=== PATIENT | female | born 1985 | race Caucasian/White ===

== ENCOUNTER 2023-05-30 16:32 | Inpatient (IN) | payer BC ==
[2023-05-30] MEDS ORDERED: Ondansetron PF 4 MG/2 ML Vial IVP PRN (18:19)
[2023-05-30] MEDS ORDERED: fentaNYL 50 mcg/mL 1 mL Vial SLOW IVP PRN (18:19)
[2023-05-30] MEDS ORDERED: Promethazine HCl 25 MG/ML VIAL IM PRN (18:19)
[2023-05-30] MEDS ORDERED: Acetaminophen 500 MG TAB PO PRN (18:19)
[2023-05-30] MEDS ORDERED: Zolpidem Tartrate 5 MG TAB PO PRN (18:19)
[2023-05-30] MEDS ORDERED: hydrALAZINE 20 MG/ML VIAL SLOW IVP PRN (18:19)
[2023-05-30] MEDS ORDERED: NS w/ Oxytocin 30 units 500 ML IV SCH (18:30)
[2023-05-30] MEDS ORDERED: Lactated Ringer's 1,000 ML IV SCH ×2 (18:30)
[2023-05-30 18:42] VITALS: BMI 25.9
[2023-05-30] MEDS ORDERED: Penicillin G Potassium 5 MILL.UNITS in Sodium Chloride 0.9% 100 ML IVPB SCH (19:00)
[2023-05-30] MEDS ORDERED: NIFEdipine 10 MG CAP PO SCH ×2 (19:00→23:59)
[2023-05-30 19:27] LABS: Hemoglobin 11.6 g/dL (12.0-15.5); Mean Corpuscular HGB CONC 34.1 g/dL (32.0-36.0); Mean Corpuscular Hemoglobin 32.8 pg (27.0-33.0); Mean Platelet Volume 9.4 fl (7.4-10.4); Platelet Count 132 10x3/uL (150-450); RBC Distribution Width 12.3 % (11.5-14.5); Red Blood Cell (RBC) Count 3.54 10x6/uL (3.90-5.03); White Blood Cell (WBC) Count 4.2 10x3/uL (3.5-10.5)
[2023-05-30 19:36] LABS: Bilirubin Neg (Negative); Blood, Urine Negative (Negative); Clarity Clear (Clear); Glucose, Urine (Dipstick) Normal (Negative); Ketone, Urine 15 mg/dL (Negative); Leukocyte 25 (Negative); Nitrite Negative (Negative); Protein, Urine (Dipstick) Negative (Neg-Trace); Urobilinogen Normal mg/dL (Less than 2); pH, Urine 6.5 (5.0-9.0)
[2023-05-30 19:46] LABS: RBC/HPF None Seen HPF (0-3); Squamous Epithelial 0-3 HPF (0-3); WBC/HPF 0-3 HPF (0-3)
[2023-05-30 19:47] LABS: Bacteria/HPF 3+ HPF (None Seen); Mucous/LPF 1+ LPF (<2+)
[2023-05-30 20:01] LABS: HBSAg Index 0.21 S/CO (0-0.99); Hep B Surf Ag - L&D Non-Reactive S/CO (NonReactive); Syphilis Antibody Nonreactive (Nonreactive); Syphilis Antibody Index 0.06 S/CO (<1.00 Non-Reactive)
[2023-05-30] MEDS: Betamet Acet/Betamet Na Ph 30 MG/5 ML VIAL IM SCH (20:03)
[2023-05-30] MEDS ORDERED: Nitrofurantoin Monohyd/M-Cryst 100 MG CAP PO SCH (23:30)
[2023-05-31] MEDS: Pen G 2.5 MILL.UNITS/50 ML BAG IVPB SCH ×4 (00:02→12:26)
[2023-05-31] MEDS ORDERED: Naloxone HCl 0.4 mg/ml Vial IVP PRN ×2 (03:28)
[2023-05-31] MEDS ORDERED: Lactated Ringer's 500 ML IV PRN (03:28)
[2023-05-31] MEDS ORDERED: Promethazine HCl 25 MG/ML VIAL IM PRN ×2 (03:28→22:05)
[2023-05-31] MEDS ORDERED: Moisturizing Cream (Eucerin) 113 GM JAR TOP PRN (03:28)
[2023-05-31] MEDS ORDERED: ePHEDrine Sulfate 50 MG/10 ML VIAL SLOW IVP PRN (03:28)
[2023-05-31] MEDS ORDERED: diphenhydrAMINE 50 MG/ML VIAL IVP PRN (03:28)
[2023-05-31] MEDS ORDERED: Acetaminophen 325 MG TAB PO PRN (03:28)
[2023-05-31] MEDS ORDERED: Ondansetron PF 4 MG/2 ML Vial IVP PRN ×2 (03:28→22:05)
[2023-05-31] MEDS ORDERED: fentaNYL 2 mcg/Ropivacaine 0.2% Epidural 100 ML CADD EPIDURAL SCH (03:30)
[2023-05-31] MEDS ORDERED: Communication Order-Pharmacy FS SCH (03:30)
[2023-05-31] MEDS ORDERED: fentaNYL/Ropivacaine Epidural 100 ML ONE ×2 (03:33→15:36)
[2023-05-31] MEDS: Betamet Acet/Betamet Na Ph 30 MG/5 ML VIAL IM SCH (08:25)
[2023-05-31] MEDS ORDERED: Nitrofurantoin Monohyd/M-Cryst 100 MG CAP PO SCH (09:00)
[2023-05-31] MEDS ORDERED: NS w/ Oxytocin 30 units 500 ML ONE (14:16)
[2023-05-31] MEDS ORDERED: HYDROcodone/Acetaminophen 5/325 mg Tablet PO PRN (22:05)
[2023-05-31] MEDS ORDERED: Boostrix 0.5 ML (Tdap) VIAL (>/=7 yrs of age) IM ONE (22:05)
[2023-05-31] MEDS ORDERED: diphenhydrAMINE 25 MG CAP PO PRN (22:05)
[2023-05-31] MEDS ORDERED: hydrALAZINE 20 MG/ML VIAL SLOW IVP PRN (22:05)
[2023-05-31] MEDS ORDERED: Benzocaine-Menthol 82.5 ML CAN TOP PRN (22:05)
[2023-05-31] MEDS ORDERED: Lanolin Ointment 7 GM TUBE TOP PRN (22:05)
[2023-05-31] MEDS ORDERED: Preparation H Ointment 28 GM TUBE PR PRN (22:05)
[2023-05-31] MEDS ORDERED: Milk Of Magnesia 30 ML UDCUP PO PRN (22:05)
[2023-05-31] MEDS ORDERED: Bisacodyl 10 MG SUPP PR PRN (22:05)
[2023-05-31] MEDS ORDERED: Ferrous Sulfate 325 MG TAB PO SCH (22:15)
[2023-05-31] MEDS ORDERED: Docusate 100 MG CAP PO SCH (22:15)
[2023-05-31] MEDS: Ibuprofen 800 MG TAB PO SCH (22:23)
[2023-06-01] MEDS: HYDROcodone/Acetaminophen 5/325 mg Tablet PO PRN ×4 (03:35→20:33)
[2023-06-01] MEDS: Ibuprofen 800 MG TAB PO SCH ×3 (06:15→22:38)
[2023-06-01] MEDS: Ferrous Sulfate 325 MG TAB PO SCH (07:08)
[2023-06-01] MEDS: Pen G 2.5 MILL.UNITS/50 ML BAG IVPB SCH ×2 (07:11→07:12)
[2023-06-01] MEDS: Docusate 100 MG CAP PO SCH (07:55)
[2023-06-01] MEDS: Prenatal Vitamin 1 TAB PO SCH (07:55)
[2023-06-01] MEDS ORDERED: Bupivacaine 0.25% HCL 30 ML VIAL ONE (08:00)
[2023-06-02] MEDS: HYDROcodone/Acetaminophen 5/325 mg Tablet PO PRN ×2 (02:59→09:56)
[2023-06-02] MEDS: Docusate 100 MG CAP PO SCH ×2 (04:04→14:17)
[2023-06-02] MEDS: Ibuprofen 800 MG TAB PO SCH (05:22)
[2023-06-02] MEDS: Prenatal Vitamin 1 TAB PO SCH (07:19)
[2023-06-02 07:58] VITALS: BP 104/57; TEMP 98.5
[2023-06-02] MEDS: Ferrous Sulfate 325 MG TAB PO SCH (14:17)
== END 2023-06-02 14:45 | disposition home or self-care (01) | DRG 807 ==
LOC: CSHLD/OP 16:32 → UNDOADMOB 18:43 → CSHLD 18:43 → INTOOBSV 18:43 → OBSVTOIN 18:43 → CSHLD 05-31 03:38 → OBSVTOIN 05-31 05:39 → CSHLD 05-31 05:39 → CSHPP 05-31 21:35
PROVIDERS: ADMIT Student in an Organized Health Care Education/Training Program; ATTEND Student in an Organized Health Care Education/Training Program
PROC: 10E0XZZ Delivery of Products of Conception, External Approach (ICD-10-PCS; principal; 2023-05-31)
PROC: 10907ZC Drainage of Amniotic Fluid, Therapeutic from Products of Conception, Via Natural or Artificial Opening (ICD-10-PCS; 2023-05-31)
DX: O60.14X0 Preterm labor third trimester with preterm delivery third trimester, not applicable or unspecified (principal); Z37.0 Single live birth; Z3A.35 35 weeks gestation of pregnancy; Z91.040 Latex allergy status
CPT/HCPCS: 51702; 76815; 81003; 81015; 85027; 86780; 86850; 86900; 86901; 87086; 87340; 99285; J0702; J2540; J3490; S0020

== ENCOUNTER 2025-05-16 12:57 | Outpatient (CLI) | payer BC | END 2025-05-16 12:58 | disposition home or self-care (01) | LOC: CSHMAMMO 12:57 | PROVIDERS: ATTEND Student in an Organized Health Care Education/Training Program | DX: N63.11 Unspecified lump in the right breast, upper outer quadrant (principal) | CPT/HCPCS: 77066; G0279 ==